=== PATIENT | female | born 1960 | race Caucasian/White ===

== ENCOUNTER 2016-05-29 19:10 | Inpatient (IN) | payer OTHER ==
[2016-05-29] MEDS ORDERED: ONDANSETRON 4 MG/2ML 2 ML VIAL ONE (20:30)
[2016-05-29] MEDS ORDERED: HYDROMORPHONE HCL 0.5 MG/0.5 ML SYRINGE ONE ×2 (20:30→22:49)
[2016-05-29] MEDS ORDERED: KETOROLAC TROMETHAMINE 15 MG/ML VIAL ONE (20:30)
[2016-05-29 20:50] LABS: ABSOLUTE NEUTROPHIL COUNT 5.9 K/mm3 (1.8-7.7); BASO # 0.1 K/mm3 (0.0-0.2); BASO % 0.5 % (0.2-1.0); EOS # 0.3 (0.0-0.5); EOS % 2.7 % (0.9-2.9); HEMATOCRIT 28.9 % (37.0-47.0); HEMOGLOBIN 9.2 gm/l (12.0-16.0); IMM NEUT # 0.1 K/mm3 (0-0.2); IMM NEUT% 0.8 % (0-1); LYMPH # 2.1 (1.0-4.8); LYMPH % 23.5 % (15-45); MEAN CELL VOLUME 75.9 fl (81.0-99.0); MEAN CORPUSCULAR HEMOGLOBIN 24.1 pg (27.0-31.0); MEAN CORPUSCULAR HGB CONC 31.8 g/dl (33.0-37.0); MEAN PLATELET VOLUME 12.7 fl (7.4-10.4); MONO # 0.7 (0.0-0.8); MONO % 7.9 % (4-12); NEUT % 64.6 % (43-75); PLATELET COUNT 196 K/mm3 (130-400); RED CELL DISTRIBUTION WIDTH 14.5 % (11.5-14.5)
[2016-05-29 21:02] LABS: TROPONIN I < 0.01 ng/ml (0.0-0.06)
[2016-05-29 21:03] LABS: ALB/GLOB RATIO 1.2 (>1.0); ALBUMIN 3.5 gm/dL (3.5-5.7); CALCIUM 9.1 mg/dL (8.6-10.3)
[2016-05-29 21:05] LABS: CKMB ISOENZYME 4.1 ng/ml (0.6-6.3)
[2016-05-29 22:03] LABS: URINE BILIRUBIN NEGATIVE (NEGATIVE); URINE BLOOD NEGATIVE (NEGATIVE); URINE GLUCOSE (UA) 3+ (NEGATIVE); URINE LEUKOCYTE ESTERASE NEGATIVE (NEGATIVE); URINE NITRITE NEGATIVE (NEGATIVE); URINE PROTEIN NEGATIVE (NEGATIVE); URINE UROBILINOGEN NORMAL (0-1 mg/dl)
[2016-05-29 22:05] LABS: URINE APPEARANCE CLEAR; URINE COLOR LIGHT YELLOW
[2016-05-29 22:18] LABS: AMPHETAMINES/METHAMPHETAMINES NEGATIVE (NEGATIVE); COCAINE NEGATIVE (NEGATIVE); MARIJUANA NEGATIVE (NEGATIVE); METHADONE NEGATIVE (NEGATIVE); OPIATES NEGATIVE (NEGATIVE); TRICYCLIC ANTIDEPRESSANTS NEGATIVE (NEGATIVE)
[2016-05-30] MEDS ORDERED: SODIUM CHLORIDE 0.9% 100 ML IV PRN (00:08)
[2016-05-30] MEDS ORDERED: ACETAMINOPHEN 325 MG TABLET PO PRN (00:08)
[2016-05-30] MEDS ORDERED: MENTHOL/CETYLPYRD 1 EACH LOZENGE PO PRN (00:08)
[2016-05-30] MEDS ORDERED: BLISTEX LIPSTICK 1 EACH TP PRN (00:08)
[2016-05-30] MEDS ORDERED: POTASSIUM CHLORIDE 40 MEQ in SODIUM CHLORIDE 0.9% 500 ML IV ONE (00:14)
[2016-05-30] MEDS ORDERED: SODIUM CHLORIDE 0.9% 1,000 ML IV SCH (00:15)
[2016-05-30 00:28] VITALS: BMI 24.1
[2016-05-30] MEDS ORDERED: PNEUMOCOCCAL 23-VAL P-SAC VAC 0.5 ML VIAL SUB-Q V ONE (00:34)
[2016-05-30] MEDS ORDERED: POTASSIUM CHLORIDE 20MEQ/100ML 200 ML IV ONE (00:43)
[2016-05-30] MEDS ORDERED: SODIUM CHLORIDE 0.9% 500 ML ONE (00:44)
[2016-05-30] MEDS ORDERED: PUMP TUBING ONE (00:46)
[2016-05-30] MEDS: ONDANSETRON 4 MG/2ML 2 ML VIAL IV PRN ×2 (01:17→04:21)
[2016-05-30] MEDS: ENOXAPARIN SODIUM 40 MG/0.4 ML SYRINGE SUB-Q SCH (01:17)
[2016-05-30] MEDS: OXYCODONE HCL 5 MG TABLET PO PRN ×6 (01:18→23:11)
[2016-05-30] MEDS ORDERED: ONDANSETRON 4 MG ODT TAB PO PRN (01:42)
[2016-05-30] MEDS ORDERED: INSULIN GLARGINE (DOSE) 100 UNITS/ML UNIT ONE (02:26)
[2016-05-30] MEDS: INSULIN GLARGINE (DOSE) 100 UNITS/ML UNIT SUB-Q SCH ×2 (02:31→20:22)
[2016-05-30] MEDS: ACETAMINOPHEN 500 MG TABLET PO PRN ×2 (02:39→22:09)
[2016-05-30 06:54] LABS: ABSOLUTE NEUTROPHIL COUNT 4.5 K/mm3 (1.8-7.7); BASO % 0.5 % (0.2-1.0); EOS # 0.2 (0.0-0.5); EOS % 2.4 % (0.9-2.9); HEMOGLOBIN 7.9 gm/l (12.0-16.0); IMM NEUT # 0.1 K/mm3 (0-0.2); IMM NEUT% 0.8 % (0-1); LYMPH # 2.7 (1.0-4.8); LYMPH % 33.6 % (15-45); MEAN CELL VOLUME 76.9 fl (81.0-99.0); MEAN CORPUSCULAR HEMOGLOBIN 23.4 pg (27.0-31.0); MEAN CORPUSCULAR HGB CONC 30.4 g/dl (33.0-37.0); MONO # 0.5 (0.0-0.8); MONO % 6.7 % (4-12); PLATELET COUNT 152 K/mm3 (130-400); RED CELL DISTRIBUTION WIDTH 14.6 % (11.5-14.5)
--- NOTE | 2016-05-30 06:56 | RAD ---
ELBOW -RIGHT 3-4 VIEWS HISTORY: Fall. COMPARISONS: None. FINDINGS: 3 views of the right elbow were performed demonstrating intact osseous structures. The alignment is appropriate. The joint spaces are well-maintained. No evidence of a significant elbow joint effusion is seen. There appears to be subtle ossification of the soft tissues adjacent to the lateral epicondyle. IMPRESSION: 1. No discrete fracture or significant joint effusion visualized. 2. Soft tissue calcification adjacent to the peripheral lateral epicondyle.
--- NOTE | 2016-05-30 06:58 | CT ---
HEAD W/O CON History: Fall. Comparison: None. Procedure: 1 mm axial images were obtained through the head from the vertex to the base of the skull without intravenous contrast. Stacked reconstructed 5 mm images were then obtained in the axial, coronal and sagittal planes. Findings: The lateral ventricles are of normal size and shape without evidence of hydrocephalus. No evidence of midline shift is seen. No mass or mass-effect is observed. No evidence of intra- or extra-axial fluid collections or hemorrhage is identified. The preciado/white differentiation is within expected. The basilar cisterns remain uneffaced. The posterior fossa structures are unremarkable. No acute osseous abnormalities are identified. Impression: 1. A negative unenhanced CT scan of the brain. The findings were called to the emergency room at 2133 hours, 05/29/2016, by [facility] radiology.
--- NOTE | 2016-05-30 07:05 | CT ---
C-SPINE W/O CON History: Fall. Procedure: 1 mm axial images were obtained through the cervical spine from the base of the skull to T1 with stacked reconstructed 2 mm images photographed in the axial, coronal and sagittal planes. Comparison: None. Findings: There is evidence of a solid interbody fusion and anterior plate fixation located at the C5-C6 level. Multilevel spondylosis changes are present with uncinate process hypertrophy, particularly evident at the adjacent C4-5 and C6-7 levels. No definitive fracture is visualized. No subluxation is seen. The facets align appropriately with no jumped or perched facet seen. The spinous processes are intact. No prevertebral soft tissue swelling is observed. The predens space is not widened. The odontoid process is intact. There is a small calcified 7 mm nodule identified within the right thyroid lobe. The lung apices appear to be appropriate. Impression: 1. A solid interbody fusion and anterior plate fixation at C5-6. 2. Multilevel cervical spondylosis changes and uncinate process hypertrophy. 3. No discrete fracture or significant subluxation visualized. 4. A 7 mm calcified nodule within the right thyroid lobe. The findings were called to the emergency room at 2133 hours, 05/29/2016, by [facility].
[2016-05-30 07:16] LABS: CALCIUM 8.1 mg/dL (8.6-10.3)
--- NOTE | 2016-05-30 07:16 | CT ---
T-SPINE W/O CON, L-SPINE W/O CON History: Fall. Comparison: T-spine CT examination dated 04/04/2016. Procedure: 1 mm axial images were obtained through the thoracic and lumbar spine without the use of oral or intravenous contrast.. Stacked reconstructed 3 mm images were then photographed in the axial, coronal and sagittal planes. Findings: There is note made of a transitional S1 segment with an S1-2 disc space. Mid to lower thoracic spondylosis changes are identified with disc height loss and osteophyte formation. There is no evidence of a discrete compression deformity visualized. Posterior facet upper to be is identified involving the lumbar spine with slight anterolisthesis of L5 on S1. The spinous processes and visualized ribs appear to be intact. There is the suggestion of annular bulging at the L3-4 level without evidence to suggest significant central canal stenosis. A large debris filled hiatal hernia is evident. Dependent atelectatic changes are also observed. Impression: 1. Evidence of a transitional S1 segment with an S1-2 disc space. Number is based on these observations. 2. No evidence of a significant compression deformity visualized of the thoracic or lumbar spine. 3. Mid and lower thoracic spondylosis changes with disc height loss and osteophyte formation. 4. Multilevel lumbar facet hypertrophy with slight anterolisthesis of L5 on S1. 5. The suggestion of annular bulging at L3-4 without significant resultant central canal stenosis. 6. A large debris filled hiatal hernia. 7. Dependent atelectatic changes. The findings were called to the emergency room at 2133 hours, 05/29/2016, by [facility].
[2016-05-30] MEDS: PANTOPRAZOLE 40 MG TABLET DR PO SCH ×2 (07:26→09:01)
[2016-05-30] MEDS: ASPIRIN (ENTERIC COATED) 81 MG TABLET.EC PO SCH ×2 (07:26→09:00)
[2016-05-30] MEDS: BUPROPION HCL 150 MG SR TABLET PO SCH ×2 (07:27→09:02)
[2016-05-30] MEDS: INSULIN ASPART (DOSE) 100 UNITS/1 ML SUB-Q PRN ×4 (07:31→23:11)
[2016-05-30] MEDS ORDERED: INSULIN ASPART (DOSE) 100 UNITS/1 ML SUB-Q SCH (09:00)
[2016-05-30] MEDS ORDERED: PREGABALIN 75 MG CAP PO SCH (09:00)
[2016-05-30] MEDS: PREGABALIN 50 MG CAP PO SCH ×2 (10:41→20:23)
[2016-05-30] MEDS ORDERED: SODIUM CHLORIDE 0.9% 500 ML IV PRN (11:43)
--- NOTE | 2016-05-30 11:47 | PDOC43 ---
- Subjective Chief Complaint: Fall with head and arm pain Remains lightheaded with sitting or standing. Denies history of hypotension. Denies recent history of bleeding but has required transfusion in the past. - Objective Vital Signs Temperature 98.9 F 05/30/16 08:36 Pulse Rate 106 05/30/16 11:07 Respiratory Rate 20 05/30/16 10:00 Blood Pressure 93/63 05/30/16 11:07 O2 Saturation by Pulse Oximetry 94 05/30/16 08:36 Oxygen Delivery Method Room Air Oxygen Flow Rate 0 Intake and Output 05/29/16 05/30/16 05/31/16 06:59 06:59 06:59 Intake Total 3301 Output Total 150 Balance 3151 General: Alert, Oriented x3, Cooperative, No Acute Distress HEENT: Mucous membr. moist/pink Lungs: Clear to Auscultation Bilaterally Cardiovascular: Regular Rate and Rhythm, Murmur (2/6) Abdomen: Soft, Tenderness (diffuse mild), Normal Bowel Sounds, No Rebounding, No Involuntary Guarding, No Masses Extremities: Normal Pulses, No Edema Skin: Normal Color Neurological: Normal Speech Psych/Mental Status: Normal Mood Laboratory 05/30/16 05:20 05/30/16 05:30 05/30/16 05/30/16 05/30/16 07:28 05:30 05:20 RBC 3.38 L MCV 76.9 L MCH 23.4 L MCHC 30.4 L RDW 14.6 H BUN 26 H Estimated GFR 51 L POC Capillary Glucose 267 H Calcium 8.1 L 05/29/16 23:20 RBC MCV MCH MCHC RDW BUN Estimated GFR POC Capillary Glucose 169 H Calcium Current Medications: Current meds reviewed in EMR. - Problems: Assessment/Plan (1) Hypotension Qualifiers: Hypotension type: unspecified hypotension type Qualifier Code: (I95.9) Hypotension, unspecified Status: Acute Assessment/Plan: Presumed to be secondary to dehydration and anemia, continue hydration and transfuse. (2) ELEAZAR (acute kidney injury) Status: Acute Assessment/Plan: Secondary to dehydration, baseline creatinine is 0.8, has improved from 1.2 on admit to 1.1 today. (3) Anemia Qualifiers: Anemia type: iron deficiency Status: Acute Assessment/Plan: Acute on chronic, likely with iron deficiency but need to r/o chronic GI blood loss. Symptomatic with hypotension and lightheadedness, transfuse 2 units PRBC. (4) Hypokalemia Status: Acute Assessment/Plan: resolved (5) Anxiety and depression Status: Chronic Assessment/Plan: Chronic but poorly controlled with recent episode of "hibernation" and not eating or drinking. Has been seen by social work and given [facility] mental health resources. Continue usual bupropion. (6) COPD (chronic obstructive pulmonary disease) Qualifiers: COPD type: chronic bronchitis Chronic bronchitis type: mucopurulent Qualifier Code: (J41.1) Mucopurulent chronic bronchitis Status: Chronic Assessment/Plan: stable, no O2 requirement. (7) Cataracts, bilateral Qualifiers: Cataract type: age-related Status: Chronic Assessment/Plan: outpatient f/u (8) DDD (degenerative disc disease), lumbar Status: Chronic Assessment/Plan: With exacerbation of pain due to fall 05/29. Oxycodone prn for short term. (9) Diabetes type 2, uncontrolled Qualifiers: Diabetes mellitus complication status: with neurologic complications Diabetes mellitus complication detail: with polyneuropathy Diabetes mellitus longterm insulin use: with bed bug exterminator use Qualifier Code: (E11.42) Type 2 diabetes mellitus with diabetic polyneuropathy Status: Chronic Assessment/Plan: With hyperglycemia on admit, complicated by peripheral neuropathy and suspected retinopathy. Check A1c, adjust insulin as needed. (10) Fibromyalgia syndrome Status: Chronic Assessment/Plan: continue lyrica (11) HTN (hypertension), benign Status: Chronic Assessment/Plan: Hx of HTN but currently Hypotensive and not on any anti-hypertensive medication chronically. (12) Pancreatitis Qualifiers: Chronicity: chronic Status: Chronic Assessment/Plan: Hx of recurrent pancreatitis with current c/o of diffuse abdominal pain, doubt acute pancreatitis but lipase not checked on admit, will check now. (13) Rectal prolapse Status: Chronic Assessment/Plan: outpt. f/u VTE Prophylaxis: Enoxaparin Disposition: Anticipate return to boarding house in [place]
[2016-05-30 12:14] LABS: LIPASE 28 U/L (11-82)
--- NOTE | 2016-05-30 12:36 | HP ---
RON ANDINO [id number] DATE OF : 1960 DATE OF ADMISSION: 05/29/2016 IDENTIFICATION: Ms. Karla Parikh is a 56-year-old who has established care with Corine Birch, nurse practitioner at [facility] [place]. CHIEF COMPLAINT: Fell and hit head. HISTORY OF PRESENT ILLNESS: Ms. Karla Parikh reports that she has been depressed and "hibernating for several days". She has not been eating, or drinking much over this time. Then today, she came out of her room and went with a friend to [facility]. She had sudden exacerbation of peripheral neuropathy as well as rectal prolapse and loss of stool then felt very unwell overall and had to sit down on her 4-wheel walker. Her friend was pushing her out of the store on the rolling walker when the walker hit a crack in the pavement and tipped over causing her to strike her head and right arm on the ground. Paramedics were summoned for the fall and concern for head injury. However, they did note that she was hypotensive with a systolic blood pressure in the 70s. She was transported to [facility] Emergency Room. She had evaluation for head injury and musculoskeletal injury, and had no acute concerns there, but she remained hypotensive and was found to be hyperglycemic, and anemic, and for these reasons was referred to the Hospitalist service. REVIEW OF SYSTEMS: HEENT: She does report headache, no lightheadedness now, but felt near syncope when she was at [facility]. She reports hoarse voice from her throat being dry. Respiratory: she does feel a little bit dyspneic, no cough. Cardiac: Aching in the chest from her fall, but not cardiac type chest pain. No palpitations. Gastrointestinal: Nausea, without vomiting. Chronic reflux symptoms. She reports abdominal pain for the last couple of weeks, which feels like her previous pancreatitis. She has had diarrhea today with rectal prolapse. No hematochezia, or melena. Genitourinary: Decreased output secondary to decreased oral intake. No dysuria. Musculoskeletal: She complains of right elbow pain from the fall, and shoulders aching. Constitutional: No fevers, or chills. No known weight changes. PAST MEDICAL HISTORY: 1. Diabetes mellitus type 2, reportedly poorly controlled. 2. Hypertension. 3. Fibromyalgia syndrome. 4. Chronic bronchitis type chronic obstructive pulmonary disease. 5. Rectal prolapse. 6. Lumbar degenerative disk disease. 7. Depression, and anxiety with obsessive compulsive disorder, and episodes of isolating, or as she says "hibernating". 8. Recurrent pancreatitis. 9. Bilateral cataracts. 10. Chronic anemia microcytic. 11. Hiatal hernia, and gastroesophageal reflux disease. 12. Hepatitis C. 13. Peripheral neuropathy related to diabetes. PAST SURGICAL HISTORY: 1. Bilateral carpal tunnel release. 2. Hernia repair. 3. Partial hysterectomy. 4. Left knee meniscus surgery. 5. Left big toe amputation June 2015. ALLERGIES AND INTOLERANCES: REPORTED TO DIAZEPAM THAT MADE HER DEPRESSED, STEROIDS THAT GIVE HER NEGATIVE MOOD, CODEINE CAUSED ITCHING, AND GREEN PEPPERS UPSET HER STOMACH. MEDICATIONS: 1. Lantus insulin usually 40 units in the evening. 2. Aspirin 81 mg daily. 3. Wellbutrin 300 mg in the morning. 4. Prilosec 40 mg daily. 5. Novolog insulin with a high dose sliding scale. HABITS: She has been a cigarette smoker for 38 years. She is trying to cut down and is down to 3 to 4 cigarettes per day. She reports drinking alcohol about once a month. 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 SOCIAL HISTORY: She is living in a home in [place] where she has her own bedroom, but shared communal kitchen and bathroom space. She is single, but has friends at the home. She does feel that she needs assistance with her activities of daily living and is applying to [facility] [employer] for that assistance, but is not currently receiving assistance. She does state she does not want resuscitation, intubation, or mechanical ventilation. FAMILY HISTORY: Her father had coronary artery disease. PHYSICAL EXAMINATION: GENERAL: This is a pleasant, but rambling historian. She appears older than her 56 years. VITAL SIGNS: Temperature is 98.1 degrees Fahrenheit. Pulse ranging from 62 to 93. Blood pressure ranging from 70/50 to 91/53 in the emergency department. Respiratory rate is 15. Oxygen saturation is 100% on room air. HEENT: Pupils equal, round, and reactive. Extraocular muscles intact. Oropharynx is dry. Upper denture plate in place. NECK: No adenopathy. CHEST: Clear to auscultation. HEART: Regular with 2/6 systolic murmur. ABDOMEN: Soft with diffuse mild to moderate tenderness. No guarding, or rebound. Bowel sounds are normal. No organomegaly. EXTREMITIES: Good peripheral pulses. No clubbing, cyanosis or edema. NEUROLOGIC: Does have peripheral neuropathy with lack of sensation in the hands and feet. No focal motor deficits. LABORATORY DATA: White blood cell count is 9.1, hemoglobin and hematocrit 9.2 and 28.9 with microcytic indices. Sodium is 132, potassium 3.1, chloride 101, C02 of 18, BUN 31, creatinine 1.2, and glucose 281. Liver enzymes are normal. Troponin I is less than 0.01. Urinalysis: Specific gravity of 1.010, 3+ glucose, otherwise negative. Toxicology screen is negative. DIAGNOSTIC IMAGIN. CT of the head, no skull fracture, no hemorrhage, or edema. 2. CT of the cervical spine, mid cervical spine fusion hardware, no fracture, or malalignment. 3. CT of the thoracic spine, no fracture, or malalignment. 4. CT of the lumbar spine, no evidence of fracture, or malalignment. 5. Electrocardiogram, sinus rhythm with diffuse T-wave inversion. ASSESSMENT: Ms. Karla Parikh is a 56-year-old with complicated medical history who presents after a ground level fall with hypotension. She has poorly controlled diabetes with hyperglycemia, and chronic anemia. She does appear to have at least a mild acute kidney injury and hypokalemia, much of this is related to dehydration from her episode of not eating, or drinking for several days. PLAN: 1. Admit to med surge. 2. Hydrate with intravenous fluids. 3. Treat blood sugar as indicated with insulin. 4. Replace potassium. 5. Workup anemia with fecal occult blood testing and iron folate, and B12 testing. She is likely iron deficient. 6. Repeat troponin in the morning. 7. Physical and occupational therapy evaluation and treatment. 8. Social work and care management involvement. She may need higher level of care, or at least to get assistance from [employer]. 9. Also, social work consultation for her uncontrolled depression. 10. DO NOT RESUSCITATE status per patient's wishes. 11. Venous thromboembolism prophylaxis with enoxaparin. RAULITO/adelita
[2016-05-30] MEDS ORDERED: BLOOD Y PLUMSET W/CASSETTE ONE ×2 (12:41→22:03)
[2016-05-30] MEDS ORDERED: SODIUM CHLORIDE 0.9% FLUSH 0 ML ONE (12:41)
[2016-05-30] MEDS ORDERED: SODIUM CHLORIDE 0.9% 50 ML IV ONE ×2 (12:42→12:46)
[2016-05-30] MEDS: SODIUM CHLOR 0.45%/KCL 20 MEQ 1,000 ML IV SCH ×2 (23:15→23:20)
[2016-05-31] MEDS: ENOXAPARIN SODIUM 40 MG/0.4 ML SYRINGE SUB-Q SCH (01:19)
[2016-05-31] MEDS: OXYCODONE HCL 5 MG TABLET PO PRN ×4 (03:42→14:11)
[2016-05-31] MEDS: ACETAMINOPHEN 500 MG TABLET PO PRN (05:52)
[2016-05-31 06:23] LABS: HEMATOCRIT 31.1 % (37.0-47.0); HEMOGLOBIN 9.9 gm/l (12.0-16.0)
[2016-05-31 06:46] LABS: CALCIUM 8.3 mg/dL (8.6-10.3)
[2016-05-31 06:47] LABS: FERRITIN 13.5 ng/mL (11.0-306.8)
[2016-05-31 06:49] LABS: FOLIC ACID 13.6 ng/mL (>5.9)
[2016-05-31] MEDS: INSULIN ASPART (DOSE) 100 UNITS/1 ML SUB-Q PRN ×2 (07:17→10:59)
[2016-05-31] MEDS: PREGABALIN 50 MG CAP PO SCH (09:15)
[2016-05-31] MEDS: PANTOPRAZOLE 40 MG TABLET DR PO SCH (09:16)
[2016-05-31] MEDS: BUPROPION HCL 150 MG SR TABLET PO SCH (09:16)
[2016-05-31] MEDS: ASPIRIN (ENTERIC COATED) 81 MG TABLET.EC PO SCH (09:16)
[2016-05-31] MEDS: SODIUM CHLOR 0.45%/KCL 20 MEQ 1,000 ML IV SCH ×2 (09:37→14:11)
[2016-05-31 12:20] VITALS: BP 115/80
[2016-05-31 14:06] LABS: A1C-GLYCOHEMOGLOBIN 0.8 g/dl; HEMOGLOBIN-GLYCO 8.2 g/dl
--- NOTE | 2016-05-31 15:26 | DS ---
RON ANDINO DATE OF ADMISSION: May 29, 2016 DATE OF DISCHARGE: May 31, 2016 ADMIT DIAGNOSES: 1. Hypotension. 2. Chronic anemia. 3. Dehydration secondary to poor oral intake. 4. Poorly controlled diabetes. 5. Ground level fall secondary to above. 6. Mild acute kidney injury secondary to dehydration. 7. Hypokalemia secondary to dehydration. 8. Chronic longstanding rectal prolapse with presumed slow gastrointestinal bleed. DISCHARGE DIAGNOSES: 1. Hypotension. 2. Chronic anemia. 3. Dehydration secondary to poor oral intake. 4. Poorly controlled diabetes. 5. Ground level fall secondary to above. 6. Mild acute kidney injury secondary to dehydration. 7. Hypokalemia secondary to dehydration. 8. Chronic longstanding rectal prolapse with presumed slow gastrointestinal bleed. PROCEDURES: Transfusion of two units of packed red cells. HISTORY OF PRESENT ILLNESS: Please see Dr. Johnson's note for details. Briefly, Ms. Parikh is a 56-year-old female. She does suffer from anxiety and has spent the last several days prior to admission "hibernating" at home. She was not eating or drinking very much. On the day of admission, she went to [employer] with a friend and had an exacerbation of her rectal prolapse with a loss of stool and then felt weak. When they were leaving the store with her walker, she fell. EMT were called, and she was transferred to the emergency room for evaluation. In the emergency room, she was found to have no musculoskeletal or head injuries. However, she was found to be anemic, profoundly weak and hypotensive. She was subsequently admitted to the hospitalist service. HOSPITAL COURSE: She remained with systolic blood pressure in the low 100s throughout her hospitalization. By the day of discharge, it was felt that this was most likely physiologic as she was asymptomatic with this and did not appear to be orthostatic. She was found to have a more significant anemia after hydration, and this did seem to be symptomatic. She was transfused two units with good effect. By the day of discharge, she remained with a systolic blood pressure in the low 100s though she was asymptomatic with this. She worked well with physical therapy and occupational therapy. She was not orthostatic. She was eating and drinking well and it was felt that she was stable for discharge home with plans for close outpatient followup. DISCHARGE MEDICATIONS: Oxycodone 5 mg tablets one to two every three hours as needed, #30 with no refills. All other medications as prior to admit as follows. 1. Tylenol as needed. 2. Ibuprofen as needed. 3. Ondansetron ODT 4 mg every four hours as needed. 4. Aspirin 81 mg orally daily in the morning. 5. Wellbutrin SR 300 mg orally daily in the morning. 6. Lantus 40 units subcutaneous in the evening. 7. Lyrica 300 mg orally twice daily. 8. NovoLog sliding scale as prior to admit. 9. Omeprazole 40 mg orally daily in the morning. DISCHARGE FOLLOW UP: Will be with Corinna Rios at [facility] [place], within the week. Home Health has been ordered as well. Cc: Corinna Rios
== END 2016-05-31 14:55 | disposition home or self-care (01) | DRG 315 ==
LOC: ED 19:10 → MS 21:57
PROVIDERS: ADMIT Family Medicine; ATTEND Family Medicine
PROC: 30233N1 Transfusion of Nonautologous Red Blood Cells into Peripheral Vein, Percutaneous Approach (ICD-10-PCS; principal; 2016-05-29)
DX: I95.9 Hypotension, unspecified (principal); J98.11 Atelectasis; N17.9 Acute kidney failure, unspecified; R94.31 Abnormal electrocardiogram [ECG] [EKG]; D64.9 Anemia, unspecified; E11.21 Type 2 diabetes mellitus with diabetic nephropathy; M47.9 Spondylosis, unspecified; E04.1 Nontoxic single thyroid nodule; K44.9 Diaphragmatic hernia without obstruction or gangrene; I10 Essential (primary) hypertension; F41.8 Other specified anxiety disorders; F42.9 Obsessive-compulsive disorder, unspecified; K21.9 Gastro-esophageal reflux disease without esophagitis; E11.42 Type 2 diabetes mellitus with diabetic polyneuropathy; F17.210 Nicotine dependence, cigarettes, uncomplicated; Z66 Do not resuscitate; E86.0 Dehydration; E87.6 Hypokalemia; K62.3 Rectal prolapse